=== PATIENT | male | born 1990 | race Caucasian/White ===

== ENCOUNTER 2017-02-17 16:44 | Emergency (ER) | payer MEDICAID ==
[2017-02-17] MEDS ORDERED: APAP/HYDROCODONE 325/5 TAB PO ONE (17:16)
[2017-02-17] MEDS ORDERED: APAP/HYDROCODONE 325/5 TAB ONE (17:18)
[2017-02-17 17:49] VITALS: RESP 18; O2SAT 97
[2017-02-17 19:06] VITALS: BP 130/86; PULSE 100; TEMP 98.6
== END 2017-02-17 19:34 | disposition home or self-care (01) | DRG 159 ==
LOC: ED 16:44
DX: S02.601A Fracture of unspecified part of body of right mandible, initial encounter for closed fracture (principal); S02.2XXA Fracture of nasal bones, initial encounter for closed fracture; S02.652A Fracture of angle of left mandible, initial encounter for closed fracture; H57.12 Ocular pain, left eye; M54.2 Cervicalgia; Y04.0XXA Assault by unarmed brawl or fight, initial encounter; R51 Headache
CPT/HCPCS: 70450; 70486; 71020; 72040; 99283; 99284

== ENCOUNTER 2017-08-22 13:05 | Emergency (ER) | payer MEDICAID, OTHER ==
[2017-08-22 13:46] VITALS: BP 152/89; PULSE 81; RESP 18; TEMP 98.1; O2SAT 99
[2017-08-22] MEDS ORDERED: LIDOCAINE HCL 2% (VISCOUS) 20 ML SOL MT ONE (13:46)
[2017-08-22] MEDS ORDERED: LIDOCAINE HCL 2% (VISCOUS) 20 ML SOL ONE (13:49)
== END 2017-08-22 14:20 | disposition home or self-care (01) ==
LOC: ED 13:05
DX: K08.89 Other specified disorders of teeth and supporting structures (principal)
CPT/HCPCS: 99282